=== PATIENT | female | born 1990 | race African-American/Black ===

== ENCOUNTER 2021-11-02 15:55 | Emergency (ER) | payer BC ==
[~2021-11-02] VITALS: Ht 162.6 cm; Wt 90.7 kg
[2021-11-02] MEDS ORDERED: THERAFLU FLU &1 EAC1 PO (16:30)
[2021-11-02] MEDS ORDERED: LORATADINE10 MG PO (16:30)
[2021-11-02] MEDS ORDERED: PREDNISONE20 MG PO (16:30)
== END 2021-11-02 17:04 | disposition home or self-care (01) ==
LOC: FSED 16:05
DX: J06.9 Acute upper respiratory infection, unspecified (principal); R05.9 Cough, unspecified
CPT/HCPCS: 83518; 87400; 99282